=== PATIENT | female | born 1975 | race American Indian/Alaskan Native ===

== ENCOUNTER 2023-03-13 10:15 | Outpatient (AMB) | payer OTHER, SELFPAY ==
--- NOTE | 2023-03-13 10:33 | MHC.OFFVIS ---
Intake Vital Signs 03/13/23 10:34 Weight 168 lb BP 133/78 Blood Pressure Location Rt brachial Position Sitting Pulse 72 Intake Visit Reasons: billary colic, gallstone pancreatitis Intake Note: Patient referred for gallstones pancreatis. Recent hospitalization at [facility] from 02-27 to 03-01. Patient Had pain that started on Rt abd that spread all over abd. 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 This was at an outside facility/[facility] At present, patient feels she is improving from her original pancreatitis/biliary colic symptoms but wishes to have her gallbladder removed so she does not have to after go through to such symptoms again. Patient is tolerating a diet. She is having regular bowel habits. She does not recall ever being jaundiced. Chart was reviewed patient evaluated. C- section x4. Most recent laboratory values were grossly within normal limits. Physical Exam Vital Signs: Last Vital Signs Pulse 72 03/13/23 10:34 BP 133/78 03/13/23 10:34 Eyes Other: Anicteric Chest Other: Chest breath sounds bilaterally, HS 1 in 2 GI Other: Abdomen soft, moderately corpulent, benign. scar Assessment & Plan Assessment & Plan (1) Gallstone pancreatitis: Code(s): K85.10 - Biliary acute pancreatitis without necrosis or infection Plan Risks, benefits, alternatives of laparoscopic possible open cholecystectomy with cholangiogram were reviewed the patient included but not limited to bleeding, infection, recurrence of symptoms, numbness, pain, scarring, bile duct or bowel injury or leak and the patient wishes to proceed. All questions were answered. Arrangements will be made for this. The meantime, we will obtain her prior hospitalization records and radiographic studies. She provided some of these which were reviewed. Coding Level of Care Code New Pt Level 5 (30457) Diagnoses Gallstone pancreatitis K85.10
[2023-03-13 10:34] VITALS: BP 133/78; PULSE 72
== END 2023-03-13 10:47 | disposition home or self-care (01) ==
PROVIDERS: PCP Internal Medicine; Referring Provider Internal Medicine; Visit Provider Surgery
DX: K85.10 Biliary acute pancreatitis without necrosis or infection (principal)
CPT/HCPCS: 99204

== ENCOUNTER → 2023-03-13 10:15 | Outpatient (BNVA) | payer OTHER, SELFPAY | PROVIDERS: PCP Internal Medicine; Referring Provider Internal Medicine; Visit Provider Surgery ==

== ENCOUNTER 2023-03-16 10:13 | Day surgery (SDC) | payer OTHER, SELFPAY ==
--- NOTE | 2023-03-15 11:02 | HO.ANESPROP2 ---
Documented by User: Sapna Qiu NP 03/15/23 11:03 HPI - Anesthesia Eval Consult details Narrative: 47yo F for Cholecystectomy Laparoscopic or Possible Open, with Poss Cholangiogram PMFSH Active Problems Active Problems: All Active Problems (Updated 03/13/23 @ 10:49 by Krishan López MD) Gallstone pancreatitis (Acute) Surgical History Surgical History (Updated 03/15/23 @ 13:37 by Arabella Adamson RN) History of tubal ligation Meds Allergies Allergy/AdvReac Type Severity Reaction Status Date / Time ciprofloxacin [From Cipro] Allergy Unknown BLISTERS Unverified 03/13/23 10:37 From Cipro Allergy Unknown UNKNOWN Uncoded 03/13/23 10:37 Home Medications Medication Instructions Recorded Confirmed Last Taken Type atorvastatin 10 mg tablet 10 mg PO BEDTIME 03/15/23 Unknown History cholecalciferol (vitamin D3) 25 25 mcg PO DAILY 03/15/23 Unknown History mcg (1,000 unit) capsule famotidine 20 mg tablet 20 mg PO BID 03/15/23 Unknown History ferrous sulfate 325 mg (65 mg 325 mg PO DAILY 03/15/23 Unknown History iron) tablet (FeroSul) fluconazole 150 mg tablet 150 mg PO ONCE 03/15/23 Unknown History lorazepam 0.5 mg tablet 0.5 mg PO DAILY PRN anxiety 03/15/23 Unknown History medroxyprogesterone 150 mg/mL 150 mg IM Q12W 03/15/23 Unknown History intramuscular suspension naproxen 500 mg tablet 500 mg PO BID PRN cramps 03/15/23 Unknown History norethindrone acetate 5 mg tablet 15 mg PO QPM 03/15/23 Unknown History omeprazole 40 mg capsule,delayed 40 mg PO DAILY 03/15/23 Unknown History release ondansetron 4 mg disintegrating 4 mg PO Q8H PRN nausea/vomiting 03/15/23 Unknown History tablet oxycodone 5 mg tablet 5 mg PO BID PRN pain 03/15/23 Unknown History tranexamic acid 650 mg tablet 1,300 mg PO NEEDED 03/15/23 Unknown History Exam Exam Date and Time: March 15, 2023 1102 Assessment and Plan Assessment Anesthesia Assessment: Chart Reviewed Documented by User: Danish Lopez MD 03/16/23 09:20 [facility] Family History Family history of problems with anesthesia: No Surgical History Surgical History (Updated 03/15/23 @ 13:37 by Arabella Adamson RN) History of tubal ligation History of Problems with Anesthesia: No Meds Allergies Allergy/AdvReac Type Severity Reaction Status Date / Time ciprofloxacin [From Cipro] Allergy Unknown BLISTERS Unverified 03/13/23 10:37 From Cipro Allergy Unknown UNKNOWN Uncoded 03/13/23 10:37 Home Medications Medication Instructions Recorded Confirmed Last Taken Type atorvastatin 10 mg tablet 10 mg PO BEDTIME 03/15/23 Unknown History cholecalciferol (vitamin D3) 25 25 mcg PO DAILY 03/15/23 Unknown History mcg (1,000 unit) capsule famotidine 20 mg tablet 20 mg PO BID 03/15/23 Unknown History ferrous sulfate 325 mg (65 mg 325 mg PO DAILY 03/15/23 Unknown History iron) tablet (FeroSul) fluconazole 150 mg tablet 150 mg PO ONCE 03/15/23 Unknown History lorazepam 0.5 mg tablet 0.5 mg PO DAILY PRN anxiety 03/15/23 Unknown History medroxyprogesterone 150 mg/mL 150 mg IM Q12W 03/15/23 Unknown History intramuscular suspension naproxen 500 mg tablet 500 mg PO BID PRN cramps 03/15/23 Unknown History norethindrone acetate 5 mg tablet 15 mg PO QPM 03/15/23 Unknown History omeprazole 40 mg capsule,delayed 40 mg PO DAILY 03/15/23 Unknown History release ondansetron 4 mg disintegrating 4 mg PO Q8H PRN nausea/vomiting 03/15/23 Unknown History tablet oxycodone 5 mg tablet 5 mg PO BID PRN pain 03/15/23 Unknown History tranexamic acid 650 mg tablet 1,300 mg PO NEEDED 03/15/23 Unknown History Exam Airway Mallampati Class: II TM Dist: >3cm Neck ROM: Limited Heart: rrr Lungs: cta Assessment and Plan Final Anesthetic Review Family History of Problems with Anesthesia: No History of Problems with Anesthesia: No NPO: Yes ASA Class: II Final Preanesthetic Review: No Changes in Pt Med Stat, Meds/Allgs Chart Reviewed, Consent Obtained/Reviewed and Anes Risks/Benef Reviewed Patient Risk: Intermediate Procedure Risk: Intermediate Anesthetic Plan Anesthetic Plan: GA and Agree w/ Assess. and Plan Disposition: Standard PACU
--- NOTE | 2023-03-15 16:39 | MHC.SHP ---
Pre-Procedural Eval Section A Date of Service: 03/15/23 The patient is an INPATIENT: No Changes since office visit: No Cold of Flu in the past 2 weeks, No New Medical Problems, No Changes in Medication and No Patient answered all questions The History & Physical has been completed within 30 days and I have reviewed it.: Yes Section B Chief Complaint: Biliary acute pancreatitis without necrosis or inf Allergies: Allergies Allergy/AdvReac Type Severity Reaction Status Date / Time ciprofloxacin [From Cipro] Allergy Unknown BLISTERS Unverified 03/13/23 10:37 From Cipro Allergy Unknown UNKNOWN Uncoded 03/13/23 10:37 Plan I have reviewed the history and physical and performed a pertinent physical examination on my patient. No changes have occurred unless specified. Time Spent With Patient Time: Total time managing care of this patient today ____ minutes.
[2023-03-16] VITALS (11 sets, daily range): BP systolic 140–159; BP diastolic 53–80; PULSE 62–82; RESP 14–18; TEMP 36.1–37.2; O2SAT 96–100; BMI 30.7
--- NOTE | ~2023-03-16 | FL_ITS ---
EXAMINATION: XR FLUOROSCOPY WITH IMAGES CLINICAL INFORMATION: Cholangiogram. COMPARISON: None available. TECHNIQUE: Fluoroscopy Supervised By: Dr. Krishan López. Fluoroscopy Time: 40.5 seconds. Cumulative Dose: 10.96 mGy. DAP: Gycm2. Images: 8. FINDINGS: Intraoperative T-tube cholangiogram demonstrates normal caliber intra and extrahepatic bile ducts. No filling defect. Visualized distal main pancreatic duct is normal. There is contrast filling the duodenum. FL/FL guidance in OR IMPRESSION: Fluoroscopy guidance for T-tube cholangiogram
[2023-03-16] MEDS: Lactated Ringers 1,000 ML 100 ML IVCONT (11:00)
--- NOTE | 2023-03-16 14:18 | W.PM.OPN ---
Operative Note Operative Note Date of Service: 03/16/23 Narrative: Preoperative diagnosis: [] Gallstone pancreatitis Postop diagnosis: [] Same Procedure [] laparoscopic cholecystectomy with cholangiogram Surgeon: [] Rene Follow Up Specialist: [] Robert Type of Anesthesia: [] General Indication for surgery: [] Gallstone pancreatitis. Intraoperative findings demonstrated gallbladder with multiple sludge and small stones. Gallbladder was very intrahepatic. Cholangiogram demonstrated free flow contrast into the duodenum and the extrahepatic biliary system with no filling defects. Moderately corpulent abdomen. Findings: [] Patient brought to the operating room, placed on operative table supine position, after adequate level of general anesthesia was induced, the patient's abdomen was prepped and draped in usual sterile fashion. Using a supraumbilical curvilinear incision, Laguerre technique was used to insufflate the abdominal cavity to 15 mm of CO2. Upper midline and right subcostal ports were placed under direct laparoscopic view, and the patient was placed in reverse Trendelenburg position, tilted to the left. Gallbladder was grasped using laparoscopic graspers. Soft omental adhesions swept off the gallbladder were its hilum was approached. Cystic artery and cystic duct were each identified, circumferentially skeletonized, traced directly into the gallbladder and critical view obtained. A clip was placed on the gallbladder side of the cystic duct and a choly cystodochotomy performed and a cholangiocatheter advanced into the cystic duct with uneventful cholangiogram with findings as noted above. Cystic duct was then clipped proximally x2 and transected. Similarly cystic artery was clipped proximally x2 distally x1 and transected. Gallbladder was cauterized from the gallbladder fossa using Bovie. As noted above, gallbladder was very intrahepatic. Specimen was placed in an Endo-Catch bag, retrieved through the umbilical port The abdominal cavity was very copiously irrigated using combination of Bovie and Surgicel. All ports were removed under direct laparoscopic view. Wounds were closed in the following manner; umbilical wound is fascia reapproximated using interrupted 0 Vicryl sutures. Skin wounds were closed using subcuticular 4-0 Vicryl sutures followed by Steri-Strips and sterile dressings. Wounds were infiltrated 0.5% Marcaine at completion. Sponge, needle, and instrument counts reported correct. Patient tolerated the procedure well and emerged anesthesia in stable condition. EBL minimal
[2023-03-16] MEDS: HYDROmorphone HCl 0.5 MG/0.5 ML SYRINGE 0.25 MG IVPUSH ×2 (14:45→15:00)
[2023-03-16] MEDS: Acetaminophen 325 MG TABLET 650 MG PO (15:18)
== END 2023-03-16 16:30 | disposition home or self-care (01) ==
PROVIDERS: PCP Student in an Organized Health Care Education/Training Program; Visit Provider Surgery
PROC: 0FT44ZZ Resection of Gallbladder, Percutaneous Endoscopic Approach (ICD-10-PCS; CPT 47562; principal; 2023-03-16 12:00)
DX: K85.10 Biliary acute pancreatitis without necrosis or infection (principal); K80.12 Calculus of gallbladder with acute and chronic cholecystitis without obstruction; K82.8 Other specified diseases of gallbladder
CPT/HCPCS: 47563; 88304; C1726; J0690; J1100; J1170; J1885; J2250; J2405; J3010; Q9967

== ENCOUNTER → 2023-03-16 10:13 | Outpatient (BNV) | payer OTHER, SELFPAY | PROVIDERS: PCP Student in an Organized Health Care Education/Training Program; Visit Provider Surgery | DX: K85.10 Biliary acute pancreatitis without necrosis or infection (principal) | CPT/HCPCS: 47563 ==

== ENCOUNTER 2023-03-27 10:17 | Outpatient (AMB) | payer OTHER, SELFPAY ==
[2023-03-27 10:21] VITALS: BP 132/67; PULSE 69
--- NOTE | 2023-03-27 10:21 | MHC.OFFVIS ---
Intake Vital Signs 03/27/23 10:21 Weight 169 lb BP 132/67 Blood Pressure Location Rt brachial Position Sitting Pulse 69 Intake Visit Reasons: S/p lap tom, poss open w/ cholangiogram Intake Note: Patient here s/p lap tom. Reports incision healing well. Taking rx pain meds as needed. 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 Aside from incisional discomfort she is otherwise doing relatively well. She is tolerating her diet. She is having regular bowel habits. Activity level is increasing. PFS Medical History History of uterine anomaly Ureteral hemorrhage Anxiety GERD (gastroesophageal reflux disease) High cholesterol Surgical History Hx laparoscopic cholecystectomy (03/16/23) H/O dilation and curettage History of tubal ligation Social History Patient Tobacco Use Status: Current someday Tobacco user Tobacco use type: Cigarette Physical Exam Vital Signs: Last Vital Signs Pulse 69 03/27/23 10:21 BP 132/67 03/27/23 10:21 Eyes Other: Anicteric GI Other: Abdomen soft. All wounds clean dry and intact Assessment & Plan Assessment & Plan (1) Gallstone pancreatitis: Code(s): K85.10 - Biliary acute pancreatitis without necrosis or infection Plan Patient has been given local instructions, a note for work to start in 3 weeks with 2 weeks light duty, and will otherwise follow up p.r.n.. Coding Level of Care Code Global (78665) Diagnoses Gallstone pancreatitis K85.10
== END 2023-03-27 10:27 | disposition home or self-care (01) ==
PROVIDERS: PCP Student in an Organized Health Care Education/Training Program; Visit Provider Surgery
DX: K85.10 Biliary acute pancreatitis without necrosis or infection (principal)
CPT/HCPCS: 99024

== ENCOUNTER → 2023-03-27 10:17 | Outpatient (BNVA) | payer OTHER, SELFPAY | PROVIDERS: PCP Student in an Organized Health Care Education/Training Program; Visit Provider Surgery ==